=== PATIENT | male | born 1940 | race Caucasian/White ===

== ENCOUNTER 2017-12-23 11:15 | Emergency (ER) | payer MEDICARE, OTHER ==
[2017-12-23 11:27] VITALS: BP 110/63
--- NOTE | 2017-12-23 12:06 | EDM.PDOC ---
ED HPI GENERAL MEDICAL PROBLEM - General Chief Complaint: Respiratory Problem Stated Complaint: LOW BP/HIGH HEART RATE Time Seen by Provider: 12/23/17 11:50 Source of Information: Reports: Patient, RN Notes Reviewed History Limitations: Reports: No Limitations - History of Present Illness INITIAL COMMENTS - FREE TEXT/NARRATIVE: 77-year-old gentleman presents to emergency department today with complaint of shortness of breath low blood pressure, he does have a blood pressure cuff at home this morning when he is taking his blood pressure he noticed that his systolic blood pressure was around 85 his pulse was at 130 he felt very short of breath. He feels most them symptoms have resolved at this time. Does have a history of atrial fibrillation on anticoagulant therapy is well as a watchman procedure - Related Data Allergies Allergy/AdvReac Type Severity Reaction Status Date / Time No Known Allergies Allergy Verified 01/22/16 19:05 Home Meds: Home Meds Digoxin [Digox] 125 mcg PO DAILY 01/22/16 [History] Metoprolol Tartrate 12.5 mg PO BID 01/22/16 [History] Warfarin [Coumadin] 5 mg PO DAILY 01/22/16 [History] Acetaminophen/oxyCODONE [Percocet 325-5 MG] 1 - 2 tab PO Q4H PRN #40 tablet 01/23 [Rx] Diazepam [Valium] 5 mg PO BID PRN #10 tablet 05/17/16 [Rx] Tamsulosin [Flomax] 0.4 mg PO DAILY #30 cap.er 05/17/16 [Rx] Past Medical History HEENT History: Reports: Cataract, Hard of Hearing, Impaired Vision Cardiovascular History: Reports: Afib, Hypertension Genitourinary History: Reports: BPH Other Genitourinary History: prostate issue Musculoskeletal History: Reports: Arthritis Neurological History: Reports: Migraines, TIA 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 Endocrine/Metabolic History: Reports: Hypothyroidism Other Endocrine/Metabolic History: grave's disease Hematologic History: Reports: Anticoagulation Therapy Oncologic (Cancer) History: Reports: Prostate Dermatologic History: Reports: Other (See Below) Other Dermatologic History: burning sensation of left side since stroke - Past Surgical History Head Surgeries/Procedures: Reports: None HEENT Surgical History: Reports: None Cardiovascular Surgical History: Reports: Other (See Below) Other Cardiovascular Surgeries/Procedures: left at[facility] Watchman GI Surgical History: Reports: Colonoscopy, Hernia Repair/Other Male Surgical History: Reports: Prostate Biopsy Endocrine Surgical History: Reports: None Musculoskeletal Surgical History: Reports: Knee Replacement Dermatological Surgical History: Reports: None Social & Family History - Tobacco Use Smoking Status *Q: Former Smoker Used Tobacco, but Quit: Yes Month/Year Tobacco Last Used: 2006 Second Hand Smoke Exposure: No - Caffeine Use Caffeine Use: Reports: Coffee - Recreational Drug Use Recreational Drug Use: No ED ROS GENERAL - Review of Systems Review Of Systems: See Below Constitutional: Reports: No Symptoms HEENT: Reports: No Symptoms Respiratory: Reports: Shortness of Breath Cardiovascular: Reports: Other (Hypotension). Denies: Chest Pain GI/Abdominal: Reports: No Symptoms : Reports: No Symptoms Musculoskeletal: Reports: No Symptoms ED EXAM, GENERAL - Physical Exam Exam: See Below Free Text/Narrative:: General: Male, not in any distress, alert and oriented x3 HEENT: head is atraumatic normocephalic, eyes pupils equal round reactive to light, sclera clear no conjunctivitis appreciated. Ears tympanic membranes clear and aly landmarks and light reflex are present bilaterally canals are clear. Nose no septal deviation, nares are clear, no blood present. Mouth mucosa is moist and pink no erythema or exudate noted in soft palate, tongue is midline uvula is midline, dentition is intact. Neck: Supple no thyromegaly no tracheal deviation. Nodes: Cervical nodes subclavicular nodes nontender no palpable lymphadenopathy noted. Lungs: clear to auscultation bilaterally with symmetrical respirations, no adventitious noise appreciated. CV: Irregularly irregular rate and rhythm S1 and S2 appreciated no murmurs rubs or gallops noted. Abdomen: Soft, nontender, no palpable masses or organomegaly appreciated, no distention no guarding bowel sounds are present, . Neuro: Cranial nerves II through XII grossly intact Skin: Warm and dry, intact Extremities: No lower extremity edema appreciated Course - Vital Signs Last Recorded V/S: Last Vital Signs Temp 98.1 F 12/23/17 11:35 Pulse 88 12/23/17 11:35 Resp 14 12/23/17 11:35 BP 110/63 12/23/17 11:35 Pulse Ox 98 12/23/17 11:35 - Orders/Labs/Meds Orders: Active Orders 24 hr Category Date Time Status EKG Documentation Completion [RC] ASDIRECTED Care 12/23/17 12:00 Active Chest 2V [CR] Urgent Exams 12/23/17 12:00 Taken EKG 12 Lead [EK] Stat Ther 12/23/17 11:59 Ordered Labs: Laboratory Tests 12/23/17 12/23/17 12/23/17 Range/Units 12:05 12:05 12:05 WBC 7.1 (4.5-11.0) K/uL RBC 4.74 (4.30-5.90) M/uL Hgb 13.6 (12.0-15.0) g/dL Hct 41.4 (40.0-54.0) % MCV 87 (80-98) fL MCH 29 (27-31) pg MCHC 33 (32-36) % Plt Count 145 L (150-400) K/uL Neut % (Auto) 59 (36-66) % Lymph % (Auto) 22 L (24-44) % Turner % (Auto) 16 H (2-6) % Eos % (Auto) 3 (2-4) % Baso % (Auto) 0 (0-1) % PT 11.1 (9.5-12.0) sec INR 1.01 D (0.80-1.20) Sodium 141 (140-148) mmol/L Potassium 4.0 (3.6-5.2) mmol/L Chloride 106 (100-108) mmol/L Carbon Dioxide 27 (21-32) mmol/L Anion Gap 7.7 (5.0-14.0) mmol/L BUN 15 (7-18) mg/dL Creatinine 0.9 (0.8-1.3) mg/dL Est Cr Clr Drug Dosing 72.10 mL/min Estimated GFR (MDRD) > 60 (>60) Glucose 113 H (74-106) mg/dL Calcium 8.8 (8.5-10.1) mg/dL Departure - Departure Time of Disposition: 13:10 Disposition: Home, Self-Care 01 Condition: Fair Clinical Impression: Hypotensive episode - Discharge Information Referrals: PCP,None [Primary Care Provider] - Forms: ED Department Discharge Additional Instructions: Please followup with your primary care provider in 3-5 days if not better, please call return to the emergency department with worsening of symptoms. - My Orders Last 24 Hours: My Active Orders 12/23/17 11:59 EKG 12 Lead [EK] Stat 12/23/17 12:00 EKG Documentation Completion [RC] ASDIRECTED Chest 2V [CR] Urgent - Assessment/Plan Last 24 Hours: My Active Orders 12/23/17 11:59 EKG 12 Lead [EK] Stat 12/23/17 12:00 EKG Documentation Completion [RC] ASDIRECTED Chest 2V [CR] Urgent Plan: Assessment Acuity = acute Site and laterality = hypotensive event Etiology = unknown etiology Manifestations = all symptoms now resolved Location of injury = Home Lab values = CBC, BMP, INR all within normal limits, chest x-ray I did review films myself I cannot appreciate any acute process, the official read from radiology is pending EKG also unremarkable EKG does demonstrate atrial fibrillation however it's no different than 2016 Plan I did review lab work EKG results with him, I have him follow-up with his primary care in 3-5 days if if symptomology returns This note was dictated using [employer] voice recognition software please call with any questions on syntax or grammar.
--- NOTE | 2017-12-23 13:13 | CR ---
Chest 2V FINDINGS: The heart and vascular structures are normal in appearance. No infiltrates or effusions are demonstrated. The skeletal structures are unremarkable. On the lateral view there is a metallic dens ity resembling a filter superimposed over the heart. IMPRESSION: 1. No acute findings. 2. Possible caval filter superimposed over the heart. Recommend correlation with patient's past medic al history.
== END 2017-12-23 13:27 | disposition home or self-care (01) ==
LOC: JP.ED 11:15
DX: I95.9 Hypotension, unspecified (principal); I48.91 Unspecified atrial fibrillation; I10 Essential (primary) hypertension; Z79.899 Other long term (current) drug therapy; Z79.01 Long term (current) use of anticoagulants; Z87.891 Personal history of nicotine dependence; E03.9 Hypothyroidism, unspecified
CPT/HCPCS: 36415; 71046; 71046-26; 80048; 85025; 85610; 93005; 99285-25